=== PATIENT | female | born 2000 | race Caucasian/White ===

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

== ENCOUNTER 2019-10-07 08:42 | Emergency (ER) | payer OTHER ==
[~2019-10-07] VITALS: Ht 152.4 cm; Wt 88.5 kg
[2019-10-07 08:44] VITALS: BP 111/70
--- NOTE | 2019-10-07 08:54 | NUR ---
19 Y/O F C/C LEFT KNEE PAIN X 1 DAY. PER MOTHER PT FELL BUT DENIES HITTING HEAD OR LOC. PT PRESENTS CALM, COOPERATIVE. PT ASSISTED TO BED DUE TO PAIN ON LEFT KNEE, ABLE TO STAND WITH ASSIST. [facility] WNL. ROM LIMITED. NKA. NO HX. NO RX. NO NVD. SIDE RAIL X1.
--- NOTE | 2019-10-07 08:54 | NUR ---
ERMD AT BEDSIDE
[2019-10-07] MEDS ORDERED: IBUPROFEN 600 MG TAB PO ONE (08:55)
--- NOTE | 2019-10-07 08:58 | NUR ---
RAD AT BEDSIDE
[2019-10-07 09:54] VITALS: BP 111/70
--- NOTE | 2019-10-07 09:54 | NUR ---
Patient discharged with v/s stable. Written and verbal after care instructions given and explained. Patient alert, oriented and verbalized understanding of instructions. Wheel Chair Assisted with by parent. All questions addressed prior to discharge. ID band removed. Patient advised to follow up with PMD. Rx of MOTRIN given. Patient educated on indication of medication including possible reaction and side effects. Opportunity to ask questions provided and answered.
== END 2019-10-07 09:54 | disposition home or self-care (01) ==
LOC: MED 08:42
DX: S86.812A Strain of other muscle(s) and tendon(s) at lower leg level, left leg, initial encounter (principal); W01.0XXA Fall on same level from slipping, tripping and stumbling without subsequent striking against object, initial encounter; Y93.89 Activity, other specified; Y92.830 Public park as the place of occurrence of the external cause; Y99.8 Other external cause status
CPT/HCPCS: 29505; 73564; 99283; Q0092